=== PATIENT | female | born 1995 | race Caucasian/White ===

== ENCOUNTER 2019-04-20 07:10 | Inpatient (IN) | payer OTHER, BC ==
[2019-04-20] MEDS ORDERED: Sodium Chloride 0.9% 10 ML Syringe FLUSH PRN (07:13)
[2019-04-20] MEDS ORDERED: Ondansetron 4 MG/2 ML SDV IVPUSH PRN (07:13)
[2019-04-20] MEDS ORDERED: Nalbuphine 10 MG/1 ML Vial IVPUSH PRN (07:13)
[2019-04-20] MEDS ORDERED: Oxytocin/Lactated Ringers 10 UNIT/1,000 ML BAG IV SCH ×2 (07:15)
--- NOTE | 2019-04-20 07:16 | PCM.LDHP ---
L&D History of Present Illness - General Date of Service: 04/20/19 Admit Problem/Dx: Patient Status Order with Admit Dx/Problem 04/20/19 07:13 Patient Status [ADT] Routine Admission Diagnosis/Problem Admission Diagnosis/Problem Normal Source of Information: Patient History Limitations: Reports: No Limitations - History of Present Illness Introduction:: Patient is a 24 y/o at 40 0/7 wks who presents for elective IOL. Doing well. No concerns/complaints today. - Related Data Allergies/Adverse Reactions: Allergies Allergy/AdvReac Type Severity Reaction Status Date / Time No Known Allergies Allergy Verified 04/20/19 09:26 Home Medications: Home Meds . 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 (Approximate): Social & Family History - Tobacco Use Smoking Status *Q: Former Smoker - Alcohol Use Alcohol Use History: No - Recreational Drug Use Recreational Drug Use: No Drug Use in Last 12 Months: No H&P Review of Systems - Review of Systems: Review Of Systems: See Below General: Reports: No Symptoms Pulmonary: Reports: No Symptoms Cardiovascular: Reports: No Symptoms Gastrointestinal: Reports: No Symptoms Genitourinary: Reports: No Symptoms Musculoskeletal: Reports: No Symptoms Psychiatric: Reports: No Symptoms Neurological: Reports: No Symptoms L&D Exam - Exam Exam: See Below - OB Specific Contraction Intensity: Irritability Movement: Active Heart Tones: Present Heart Tones per Min: 135 Heart Rate (FHR) Variability: Moderate (6-25 bmp) Presentation: Vertex - Fajardo Score Fajardo Score Cervix Position: Posterior Fajardo Score Consistency: Soft Fajardo Score Effacement: 51-70% Fajardo Score Dilation: 1-2 cm Fajardo Score Infant's Station: -2 Fajardo Score Total: 6 - Exam General: Alert, Oriented, Cooperative Lungs: Clear to Auscultation, Normal Respiratory Effort Cardiovascular: Regular Rate, Regular Rhythm GI/Abdominal Exam: Soft, Non-Tender Genitourinary: Normal external exam Extremities: Normal Inspection Skin: Warm, Dry, Intact - Patient Data Result Diagrams: 04/20/19 07:39 - Problem List (1) 40 weeks gestation of SNOMED Code(s): 39769809 ICD Code: Z3A.40 - 40 WEEKS GESTATION OF Status: Acute Current Visit: Yes (2) Elective induction of labor planned SNOMED Code(s): 461451909 ICD Code: [id number] - Status: Acute Current Visit: Yes (3) Rubella non-immune status, antepartum SNOMED Code(s): 047118390 ICD Code: O99.89 - OTH DISEASES AND CONDITIONS COMPL PREG/CHLDBRTH; Z28.3 - UNDERIMMUNIZATION STATUS Status: Acute Current Visit: Yes Problem List Initiated/Reviewed/Updated: Yes Orders Last 24hrs: Active Orders 24 hr Category Date Time Status Patient Status [ADT] Routine ADT 04/20/19 07:13 Ordered Activity as Tolerated [RC] PFP Care 04/20/19 07:13 Ordered Communication Order [RC] ASDIRECTED Care 04/20/19 07:13 Ordered Communication Order [RC] ASDIRECTED Care 04/20/19 07:13 Ordered Communication Order [RC] ASDIRECTED Care 04/20/19 07:13 Ordered Communication Order [RC] ASDIRECTED Care 04/20/19 07:13 Ordered Heart Tones [RC] ASDIRECTED Care 04/20/19 07:13 Ordered Monitoring [RC] INTERMITTENT Care 04/20/19 07:13 Ordered Non Stress Test [RC] PER UNIT ROUTINE Care 04/20/19 07:13 Ordered Notify Provider [RC] ASDIRECTED Care 04/20/19 07:13 Ordered Notify Provider [RC] PRN Care 04/20/19 07:13 Ordered Peripheral IV Care [RC] . DIRECTED Care 04/20/19 07:13 Ordered Up ad Florencia [RC] ASDIRECTED Care 04/20/19 07:14 Ordered Vaginal Exam [RC] ASDIRECTED Care 04/20/19 07:13 Ordered Vital Signs [RC] ASDIRECTED Care 04/20/19 07:13 Ordered Regular Diet [DIET] Diet 04/20/19 Breakfast Ordered CBC W/O DIFF,HEMOGRAM [HEME] Routine Lab 04/20/19 07:13 Ordered RAPID PLASMA REAGIN,RPR [CHEM] Routine Lab 04/20/19 07:13 Ordered TYPE AND SCREEN [BBK] Routine Lab 04/20/19 07:13 Ordered Lactated Ringers [Ringers, Lactated] 1,000 ml Med 04/20/19 07:15 Ordered IV ASDIRECTED Nalbuphine [Nubain] Med 04/20/19 07:13 Ordered 10 mg IVPUSH Q2H PRN Ondansetron [Zofran] Med 04/20/19 07:13 Ordered 4 mg IVPUSH Q4H PRN Oxytocin/Lactated Ringers [Pitocin in LR 10 Units/1,000 Med 04/20/19 07:15 Ordered ML] 10 unit in 1,000 ml IV .CONTINUOUS Oxytocin/Lactated Ringers [Pitocin in LR 10 Units/1,000 Med 04/20/19 07:15 Ordered ML] 10 unit in 1,000 ml IV TITRATE Sodium Chloride 0.9% [Saline Flush] Med 04/20/19 07:13 Ordered 10 ml FLUSH ASDIRECTED PRN miSOPROStol [Cytotec] Med 04/20/19 07:13 Ordered 25 mcg VAG Q4H PRN Electronic Heart Tones Ext w TOCO [WOMSER] Ot 04/20/19 07:13 Ordered Routine Electronic Heart Tones Internal [WOMSER] Per Unit Ot 04/20/19 07:13 Ordered Routine Peripheral IV Insertion Adult [OM.PC] Routine Oth 04/20/19 07:13 Ordered Resuscitation Status Routine Resus Stat 04/20/19 07:13 Ordered Medication Orders Lactated Ringer's (Ringers, Lactated) 1,000 mls @ 40 mls/hr IV ASDIRECTED RODNEY Oxytocin/Lactated Ringer's (Pitocin In Lr 10 Units/1,000 Ml) 10 unit in 1,000 mls @ 12 mls/hr IV TITRATE RODNEY; Protocol Oxytocin/Lactated Ringer's (Pitocin In Lr 10 Units/1,000 Ml) 10 unit in 1,000 mls @ 500 mls/hr IV .CONTINUOUS RODNEY Misoprostol (Cytotec) 25 mcg VAG Q4H PRN PRN Reason: cervical ripening Nalbuphine HCl (Nubain) 10 mg IVPUSH Q2H PRN PRN Reason: Pain Ondansetron HCl (Zofran) 4 mg IVPUSH Q4H PRN PRN Reason: Nausea/Vomiting Sodium Chloride (Saline Flush) 10 ml FLUSH ASDIRECTED PRN PRN Reason: Keep Vein Open Assessment/Plan Comment:: 24 y/o presents for elective IOL * Labs * GBS negative, no need for antibiotics * Richards bulb and cytotec. Will transition to AROM/pitocin when able * Pain management per patient preference * Anticipate
[2019-04-20] MEDS ORDERED: Misoprostol 25 MCG (1/4 of 100 MCG) Tab ONE (07:22)
[2019-04-20] MEDS: Misoprostol 25 MCG (1/4 of 100 MCG) Tab VAG PRN ×2 (11:56→15:41)
--- NOTE | 2019-04-20 12:23 | PCM.PNLD ---
Labor Progress Note - VS & Meds Vital Signs: Last Vital Signs Temp 36.9 C 04/20/19 08:56 Pulse 86 04/20/19 08:56 Resp 16 04/20/19 08:56 BP 126/97 H 04/20/19 08:56 Pulse Ox Active Medications: Current Medications Lactated Ringer's (Ringers, Lactated) 1,000 mls @ 40 mls/hr IV ASDIRECTED RODNEY Oxytocin/Lactated Ringer's (Pitocin In Lr 10 Units/1,000 Ml) 10 unit in 1,000 mls @ 12 mls/hr IV TITRATE RODNEY; Protocol Oxytocin/Lactated Ringer's (Pitocin In Lr 10 Units/1,000 Ml) 10 unit in 1,000 mls @ 500 mls/hr IV .CONTINUOUS RODNEY Misoprostol (Cytotec) 25 mcg VAG Q4H PRN PRN Reason: cervical ripening Last Admin: 04/20/19 11:56 Dose: 25 mcg Nalbuphine HCl (Nubain) 10 mg IVPUSH Q2H PRN PRN Reason: Pain Ondansetron HCl (Zofran) 4 mg IVPUSH Q4H PRN PRN Reason: Nausea/Vomiting Sodium Chloride (Saline Flush) 10 ml FLUSH ASDIRECTED PRN PRN Reason: Keep Vein Open Discontinued Medications Misoprostol (Cytotec) Confirm Administered Dose 25 mcg .ROUTE .STK-MED ONE Stop: 04/20/19 07:23 Last Admin: 04/20/19 07:34 Dose: 25 mcg - Uterine Contractions Uterine Monitoring Mode: External [place] Contraction Intensity: Irritability Uterine Resting Tone: Soft - Monitoring Monitor Mode: External Ultrasound Heart Rate (FHR) Baseline: 135 Heart Rate (FHR) Variability: Moderate (6-25 bmp) Accelerations: Present, 15x15 Decelerations: None Strip Review: Category I - Labor Progress (Free Text) Labor Progress: Richards bulb out. 2nd cytotec placed at 1145. Will reassess in 4 hours and see if additional Cytotec vs initiation of pitocin needed.
--- NOTE | 2019-04-20 15:29 | PCM.PREANE ---
Preanesthetic Assessment - Procedure Proposed Procedure: tha - Anesthesia/Transfusion/Family Hx Anesthesia History: Prior Anesthesia Without Reaction Family History of Anesthesia Reaction: No Transfusion History: No Prior Transfusion(s) - Review of Systems General: No Symptoms Pulmonary: No Symptoms Cardiovascular: No Symptoms Gastrointestinal: No Symptoms Neurological: No Symptoms Other: Reports: None - Physical Assessment Vital Signs: Last Vital Signs Temp 98.5 F 04/20/19 08:56 Pulse 86 04/20/19 08:56 Resp 16 04/20/19 08:56 BP 126/97 H 04/20/19 08:56 Pulse Ox Height: 5 ft 10 in Weight: 127.715 kg ASA Class: 2 Mental Status: Alert & Oriented x3 Airway Class: Mallampati = 1 Dentition: Reports: Normal Dentition Thyro-Mental Finger Breadths: 3 Mouth Opening Finger Breadths: 3 ROM/Head Extension: Full Lungs: Clear to Auscultation, Normal Respiratory Effort Cardiovascular: Regular Rate, Regular Rhythm - Lab Values: Laboratory Last Values WBC 13.20 K/mm3 (3.98-10.04) H 04/20/19 07:39 RBC 4.54 M/mm3 (3.98-5.22) 04/20/19 07:39 Hgb 13.6 gm/L (11.2-15.7) 04/20/19 07:39 Hct 40.7 % (34.1-44.9) 04/20/19 07:39 MCV 89.6 fl (79.4-94.8) 04/20/19 07:39 MCH 30.0 pg (25.6-32.2) 04/20/19 07:39 MCHC 33.4 g/dl (32.2-35.5) 04/20/19 07:39 RDW Std Deviation 44.5 fL (36.4-46.3) 04/20/19 07:39 Plt Count 231 K/mm3 (182-369) 04/20/19 07:39 MPV 12.8 fl (9.4-12.3) H 04/20/19 07:39 Blood Type A POSITIVE 04/20/19 07:39 Gel Antibody Screen Negative 04/20/19 07:39 - Allergies Allergies/Adverse Reactions: Allergies Allergy/AdvReac Type Severity Reaction Status Date / Time No Known Allergies Allergy Verified 04/20/19 09:26 - Blood Blood Available: No - Acknowledgements Anesthesia Type Planned: Epidural Pt an Appropriate Candidate for the Planned Anesthesia: Yes Alternatives and Risks of Anesthesia Discussed w Pt/Guardian: Yes Pt/Guardian Understands and Agrees with Anesthesia Plan: Yes PreAnesthesia Questionnaire Cardiovascular History: Reports: None Respiratory History: Reports: None Gastrointestinal History: Reports: GERD (with preg) 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 [No Known Home Meds] 04/20/19 [History] - CURRENT (IN HOUSE) MEDS Current Meds: Current Medications Lactated Ringer's (Ringers, Lactated) 1,000 mls @ 40 mls/hr IV ASDIRECTED RODNEY Oxytocin/Lactated Ringer's (Pitocin In Lr 10 Units/1,000 Ml) 10 unit in 1,000 mls @ 12 mls/hr IV TITRATE RODNEY; Protocol Oxytocin/Lactated Ringer's (Pitocin In Lr 10 Units/1,000 Ml) 10 unit in 1,000 mls @ 500 mls/hr IV .CONTINUOUS RODNEY Misoprostol (Cytotec) 25 mcg VAG Q4H PRN PRN Reason: cervical ripening Last Admin: 04/20/19 11:56 Dose: 25 mcg Nalbuphine HCl (Nubain) 10 mg IVPUSH Q2H PRN PRN Reason: Pain Ondansetron HCl (Zofran) 4 mg IVPUSH Q4H PRN PRN Reason: Nausea/Vomiting Sodium Chloride (Saline Flush) 10 ml FLUSH ASDIRECTED PRN PRN Reason: Keep Vein Open Discontinued Medications Misoprostol (Cytotec) Confirm Administered Dose 25 mcg .ROUTE .STK-MED ONE Stop: 04/20/19 07:23 Last Admin: 04/20/19 07:34 Dose: 25 mcg
[2019-04-20] MEDS ORDERED: Bupivacaine/fentaNYL/NS 100 ML Bag EPIDUR PRN (15:30)
[2019-04-20] MEDS ORDERED: diphenhydrAMINE 50 MG/ML SDV IVPUSH PRN (15:30)
[2019-04-20] MEDS ORDERED: ePHEDrine 50 MG/ML SDV IVPUSH PRN (15:30)
[2019-04-20] MEDS: Lactated Ringers 1,000 ML IV SCH ×2 (19:37→22:12)
--- NOTE | 2019-04-20 19:50 | PCM.PNLD ---
Labor Progress Note - VS & Meds Vital Signs: Last Vital Signs Temp 36.9 C 04/20/19 08:56 Pulse 86 04/20/19 08:56 Resp 16 04/20/19 08:56 BP 126/97 H 04/20/19 08:56 Pulse Ox Active Medications: Current Medications Diphenhydramine HCl (Benadryl) 25 mg IVPUSH Q6H PRN PRN Reason: pruritis Ephedrine Sulfate (Ephedrine Sulfate) 5 mg IVPUSH ASDIRECTED PRN PRN Reason: Hypotension Fentanyl (Sublimaze) 100 mcg EPIDUR Q3H PRN PRN Reason: Pain Fentanyl/Bupivacaine HCl (Fentanyl/Bupivacaine/Ns 2 Mcg-0.125% 100 Ml) 100 ml EPIDUR ASDIRECTED PRN PRN Reason: Pain Lactated Ringer's (Ringers, Lactated) 1,000 mls @ 40 mls/hr IV ASDIRECTED RODNEY Last Admin: 04/20/19 19:37 Dose: 40 mls/hr Oxytocin/Lactated Ringer's (Pitocin In Lr 10 Units/1,000 Ml) 10 unit in 1,000 mls @ 12 mls/hr IV TITRATE RODNEY; Protocol Oxytocin/Lactated Ringer's (Pitocin In Lr 10 Units/1,000 Ml) 10 unit in 1,000 mls @ 500 mls/hr IV .CONTINUOUS RODNEY Misoprostol (Cytotec) 25 mcg VAG Q4H PRN PRN Reason: cervical ripening Last Admin: 04/20/19 15:41 Dose: 25 mcg Nalbuphine HCl (Nubain) 10 mg IVPUSH Q2H PRN PRN Reason: Pain Ondansetron HCl (Zofran) 4 mg IVPUSH Q4H PRN PRN Reason: Nausea/Vomiting Sodium Chloride (Saline Flush) 10 ml FLUSH ASDIRECTED PRN PRN Reason: Keep Vein Open Discontinued Medications Misoprostol (Cytotec) Confirm Administered Dose 25 mcg .ROUTE .STK-MED ONE Stop: 04/20/19 07:23 Last Admin: 04/20/19 07:34 Dose: 25 mcg - Uterine Contractions Uterine Monitoring Mode: External [place] Contraction Intensity: Moderate Uterine Resting Tone: Soft - Monitoring Monitor Mode: External Ultrasound Heart Rate (FHR) Baseline: 135 Heart Rate (FHR) Variability: Moderate (6-25 bmp) Accelerations: Present, 15x15 Decelerations: None Strip Review: Category I - Labor Progress (Free Text) Labor Progress: Patient doing well. SROM at 1745. Now feeling very uncomfortable. Plans for epidural. After epidural will start pitocin if needed. She agrees.
[2019-04-20] MEDS: fentaNYL 100 MCG/2 ML SDV EPIDUR PRN (21:47)
[2019-04-21] MEDS ORDERED: Bupivacaine 0.25% 10 ML SDV ONE ×2
[2019-04-21] MEDS ORDERED: Lidocaine 1.5% with EPINEPHrine 1:200,000 5 ML Amp ONE
[2019-04-21] MEDS: fentaNYL 100 MCG/2 ML SDV EPIDUR PRN (00:45)
--- NOTE | 2019-04-21 08:16 | PCM.DEL ---
L & D Note - General Info Date of Service: 04/21/19 - Delivery Note Labor: Induced by Oxytocin Cervical Ripening Method: Balloon Device, Misoprostil Delivery Outcome: Livebirth Delivery Method: Spontaneous Vaginal Delivery-Single Infant Delivery Mode: Vacuum Extraction Presentation: Right Occiput Anterior (ANDREEA) Nuchal Cord: Present (x2), Reduced Anesthesia Type: Epidural Amniotic Fluid Description: Clear Episiotomy Type: None Laceration: 1st Degree, Vaginal Placenta: Intact, Spontaneous Cord: 3 Vessels Estimated Blood Loss: 100 Resuscitation Needed: Yes [place]: Bulb Syringe, Stimulated, Warmed, Willis Used, Warmer Used Delivery Comments (Free Text/Narrative):: Patient found to be complete and began pushing. After about 2 hours of pushing head noted to be on the perineum. FHR at this time with deep, recurrent variables and patient with exhaustion. Given concerns for status decision made to proceed with VAVD. Mushroom cup placed without difficulty. Subsequent vacuum assisted vaginal delivery occurred with pushing over 1 contraction. Total pressure applied 550 mmHg. Suction removed following delivery of head. Nuchal cord present x2 and reduced. With gentle downward traction the shoulders and body delivered. placed on maternal abdomen. Cord clamped and cut. Cord blood obtained. Placenta allowed time to separate and expelled intact. Inspection of the vagina showed a 1st degree laceration which did not extend onto the perineum and was hemostatic and so not repaired. - General Info Date of Service: 04/21/19 - Patient Data Vitals - Most Recent: Last Vital Signs Temp 36.9 C 04/20/19 08:56 Pulse 86 04/20/19 08:56 Resp 16 04/20/19 08:56 BP 126/97 H 04/20/19 08:56 Pulse Ox Weight - Most Recent: 127.715 kg Lab Results Last 24 Hours: Laboratory Results - last 24 hr 04/20/19 04/20/19 04/20/19 Range/Units 07:39 07:39 07:39 WBC 13.20 H (3.98-10.04) K/mm3 RBC 4.54 (3.98-5.22) M/mm3 Hgb 13.6 (11.2-15.7) gm/L Hct 40.7 (34.1-44.9) % MCV 89.6 (79.4-94.8) fl MCH 30.0 (25.6-32.2) pg MCHC 33.4 (32.2-35.5) g/dl RDW Std Deviation 44.5 (36.4-46.3) fL Plt Count 231 (182-369) K/mm3 MPV 12.8 H (9.4-12.3) fl RPR Non-reactive (NONREACTIVE) Blood Type A POSITIVE Gel Antibody Screen Negative Med Orders - Current: Current Medications Diphenhydramine HCl (Benadryl) 25 mg IVPUSH Q6H PRN PRN Reason: pruritis Ephedrine Sulfate (Ephedrine Sulfate) 5 mg IVPUSH ASDIRECTED PRN PRN Reason: Hypotension Fentanyl (Sublimaze) 100 mcg EPIDUR Q3H PRN PRN Reason: Pain Last Admin: 04/21/19 00:45 Dose: 100 mcg Fentanyl/Bupivacaine HCl (Fentanyl/Bupivacaine/Ns 2 Mcg-0.125% 100 Ml) 100 ml EPIDUR ASDIRECTED PRN PRN Reason: Pain Last Admin: 04/20/19 21:47 Dose: 100 ml Lactated Ringer's (Ringers, Lactated) 1,000 mls @ 40 mls/hr IV ASDIRECTED RODNEY Last Admin: 04/20/19 22:12 Dose: 40 mls/hr Oxytocin/Lactated Ringer's (Pitocin In Lr 10 Units/1,000 Ml) 10 unit in 1,000 mls @ 12 mls/hr IV TITRATE RODNEY; Protocol Last Admin: 04/20/19 22:24 Dose: 2 munits/min, 12 mls/hr Oxytocin/Lactated Ringer's (Pitocin In Lr 10 Units/1,000 Ml) 10 unit in 1,000 mls @ 500 mls/hr IV .CONTINUOUS RODNEY Misoprostol (Cytotec) 25 mcg VAG Q4H PRN PRN Reason: cervical ripening Last Admin: 04/20/19 15:41 Dose: 25 mcg Nalbuphine HCl (Nubain) 10 mg IVPUSH Q2H PRN PRN Reason: Pain Last Admin: 04/21/19 04:46 Dose: 10 mg Ondansetron HCl (Zofran) 4 mg IVPUSH Q4H PRN PRN Reason: Nausea/Vomiting Sodium Chloride (Saline Flush) 10 ml FLUSH ASDIRECTED PRN PRN Reason: Keep Vein Open Discontinued Medications Misoprostol (Cytotec) Confirm Administered Dose 25 mcg .ROUTE .STK-MED ONE Stop: 04/20/19 07:23 Last Admin: 04/20/19 07:34 Dose: 25 mcg - Problem List & Annotations (1) 40 weeks gestation of SNOMED Code(s): 38280095 Code(s): Z3A.40 - 40 WEEKS GESTATION OF Status: Acute Current Visit: Yes (2) Elective induction of labor planned SNOMED Code(s): 035737092 Code(s): QCT8750 - Status: Acute Current Visit: Yes (3) Rubella non-immune status, antepartum SNOMED Code(s): 638327549 Code(s): O99.89 - OTH DISEASES AND CONDITIONS COMPL PREG/CHLDBRTH; Z28.3 - UNDERIMMUNIZATION STATUS Status: Acute Current Visit: Yes (4) Vacuum-assisted vaginal delivery SNOMED Code(s): 51636649581730162 Code(s): Z37.9 - OUTCOME OF DELIVERY, UNSPECIFIED Status: Acute Current Visit: Yes - Problem List Review Problem List Initiated/Reviewed/Updated: Yes - My Orders Last 24 Hours: My Active Orders 04/21/19 08:14 Patient Status Manage Transfer [TRANSFER] Routine - Assessment Assessment:: 24 y/o G1 now P1 PPD#0 from VAVD at 40 1/7 wks - Plan Plan:: * Routine cares * Encourage breast feeding * MMR prior to discharge * Discharge home in 1-2 days
[2019-04-21] MEDS ORDERED: Docusate Sodium 100 MG Cap PO PRN (09:12)
[2019-04-21] MEDS ORDERED: Lanolin 100% Cream 7 GM Tube TOP PRN (09:12)
[2019-04-21] MEDS ORDERED: Witch Hazel Medicated Pads 40/Jar TOP PRN (09:12)
[2019-04-21] MEDS ORDERED: Benzocaine/Menthol 20%-0.5% Spray 56 GM Canister TOP PRN (09:12)
[2019-04-21] MEDS ORDERED: Acetaminophen 325 MG Tab PO PRN (09:12)
[2019-04-21] MEDS: Ibuprofen 600 MG Tab PO PRN ×2 (10:46→19:36)
--- NOTE | 2019-04-22 07:55 | PCM.PNPP ---
- General Info Date of Service: 04/22/19 Functional Status: Reports: Pain Controlled, Tolerating Diet, Ambulating, Urinating - Review of Systems General: Reports: No Symptoms Pulmonary: Reports: No Symptoms Cardiovascular: Reports: No Symptoms Gastrointestinal: Reports: No Symptoms Genitourinary: Reports: No Symptoms Musculoskeletal: Reports: No Symptoms Neurological: Reports: No Symptoms - Patient Data Vital Signs - Most Recent: Last Vital Signs Temp 36.4 C 04/22/19 04:41 Pulse 84 04/22/19 04:41 Resp 16 04/22/19 04:41 BP 139/60 04/22/19 04:41 Pulse Ox 99 04/22/19 04:41 Weight - Most Recent: 127.715 kg Med Orders - Current: Current Medications Acetaminophen (Tylenol) 650 mg PO Q4H PRN PRN Reason: mild pain or fever Benzocaine/Menthol (Dermoplast Pain Relief Jay) 0 gm TOP ASDIRECTED PRN PRN Reason: Perineal Comfort Measure Last Admin: 04/21/19 10:46 Dose: 1 can Docusate Sodium (Colace) 100 mg PO BID PRN PRN Reason: Constipation Emollient Ointment (Lansinoh Hpa) 0 gm TOP ASDIRECTED PRN PRN Reason: Sore Nipples Ibuprofen (Motrin) 600 mg PO Q6H PRN PRN Reason: Mild pain or fever Last Admin: 04/21/19 19:36 Dose: 600 mg Measles/Mumps/Rubella Vaccine Live (M-M-R Ii Vaccine) 0.5 ml SUBCUT .ONCE ONE Stop: 04/22/19 08:01 Witch Leandra (Tucks) 1 pad TOP ASDIRECTED PRN PRN Reason: Perineal Comfort Measure Last Admin: 04/21/19 10:47 Dose: 1 tub Discontinued Medications Diphenhydramine HCl (Benadryl) 25 mg IVPUSH Q6H PRN PRN Reason: pruritis Ephedrine Sulfate (Ephedrine Sulfate) 5 mg IVPUSH ASDIRECTED PRN PRN Reason: Hypotension Fentanyl (Sublimaze) 100 mcg EPIDUR Q3H PRN PRN Reason: Pain Last Admin: 04/21/19 00:45 Dose: 100 mcg Fentanyl/Bupivacaine HCl (Fentanyl/Bupivacaine/Ns 2 Mcg-0.125% 100 Ml) 100 ml EPIDUR ASDIRECTED PRN PRN Reason: Pain Last Admin: 04/20/19 21:47 Dose: 100 ml Lactated Ringer's (Ringers, Lactated) 1,000 mls @ 40 mls/hr IV ASDIRECTED RODNEY Last Admin: 04/20/19 22:12 Dose: 40 mls/hr Oxytocin/Lactated Ringer's (Pitocin In Lr 10 Units/1,000 Ml) 10 unit in 1,000 mls @ 12 mls/hr IV TITRATE RODNEY; Protocol Last Titration: 04/21/19 08:04 Dose: 500 mls/hr Oxytocin/Lactated Ringer's (Pitocin In Lr 10 Units/1,000 Ml) 10 unit in 1,000 mls @ 500 mls/hr IV .CONTINUOUS RODNEY Misoprostol (Cytotec) 25 mcg VAG Q4H PRN PRN Reason: cervical ripening Last Admin: 04/20/19 15:41 Dose: 25 mcg Misoprostol (Cytotec) Confirm Administered Dose 25 mcg .ROUTE .[facility]-MED ONE Stop: 04/20/19 07:23 Last Admin: 04/20/19 07:34 Dose: 25 mcg Nalbuphine HCl (Nubain) 10 mg IVPUSH Q2H PRN PRN Reason: Pain Last Admin: 04/21/19 04:46 Dose: 10 mg Ondansetron HCl (Zofran) 4 mg IVPUSH Q4H PRN PRN Reason: Nausea/Vomiting Sodium Chloride (Saline Flush) 10 ml FLUSH ASDIRECTED PRN PRN Reason: Keep Vein Open - Infant Interaction Infant Disposition, : in Room with Family Interaction: Holding Feeding: Attempted ; Nursed Fair/Poor, Bottle Fed Infant Support Person: Mother, Significant Other - Recovery Exam Fundal Tone: Firm Fundal Level: At Umbilicus Fundal Placement: Midline Lochia Amount: Small Lochia Color: Rubra/Red Perineum Description: Intact, Minimal Bruising/Swelling Episiotomy/Laceration: Approximated Bladder Status: Voiding Urinary Elimination: Voided - Exam General: Alert, Oriented, Cooperative GI/Abdominal Exam: Soft, Non-Tender Extremities: Normal Inspection Skin: Warm, Dry, Intact - Problem List & Annotations (1) 40 weeks gestation of SNOMED Code(s): 86241662 Code(s): Z3A.40 - 40 WEEKS GESTATION OF Status: Acute Current Visit: Yes (2) Elective induction of labor planned SNOMED Code(s): 480243529 Code(s): IAQ7676 - Status: Acute Current Visit: Yes (3) Rubella non-immune status, antepartum SNOMED Code(s): 187056723 Code(s): O99.89 - OTH DISEASES AND CONDITIONS COMPL PREG/CHLDBRTH; Z28.3 - UNDERIMMUNIZATION STATUS Status: Acute Current Visit: Yes (4) Vacuum-assisted vaginal delivery SNOMED Code(s): 01414206707124058 Code(s): Z37.9 - OUTCOME OF DELIVERY, UNSPECIFIED Status: Acute Current Visit: Yes - Problem List Review Problem List Initiated/Reviewed/Updated: Yes - My Orders Last 24 Hours: My Active Orders 04/21/19 09:12 Activity as Tolerated [RC] PER UNIT ROUTINE Vital Signs [RC] 09,15,21,03 Acetaminophen [Tylenol] 650 mg PO Q4H PRN Benzocaine/Menthol [Dermoplast Pain Relief Jay] See Dose Instructions TOP ASDIRECTED PRN Docusate Sodium [Colace] 100 mg PO BID PRN Ibuprofen [Motrin] 600 mg PO Q6H PRN Lanolin [Lansinoh HPA] See Dose Instructions TOP ASDIRECTED PRN Witch Leandra [Tucks] 1 pad TOP ASDIRECTED PRN Assess Lochia [WOMSER] Per Unit Routine Assess Uterine Involution [WOMSER] Per Unit Routine Breast Pump [WOMSER] Per Unit Routine Heat Therapy [OM.PC] PRN Ice Therapy [OM.PC] Per Unit Routine Perineal Care [OM.PC] Per Unit Routine Peripheral IV Discontinue [OM.PC] Routine Sitz Bath [OM.PC] Per Unit Routine 04/21/19 12:49 Vaccines to be Administered [RC] PER UNIT ROUTINE 04/21/19 Breakfast Regular Diet [DIET] 04/22/19 08:00 Measles, Mumps & Rubella [M-M-R II Vaccine] 0.5 ml SUBCUT .ONCE ONE 04/22/19 09:12 Heat Therapy [OM.PC] PRN - Assessment Assessment:: 24 y/o G1 now P1 PPD#1 from VAVD at 40 1/7 wks - Plan Plan:: * Routine cares * Encourage breast feeding * MMR prior to discharge * Discharge home today vs tomorrow pending Pediatric team evaluation
[2019-04-22] MEDS ORDERED: Measles, Mumps & Rubella Vaccine 0.5 ML SDV SUBCUT ONE (08:00)
--- NOTE | 2019-04-22 08:02 | PCM48HPAN ---
Post Anesthesia Note - EVALUATION WITHIN 48HRS OF ANESTHETIC Vital Signs in Normal Range: Yes Patient Participated in Evaluation: Yes Respiratory Function Stable: Yes Airway Patent: Yes Cardiovascular Function Stable: Yes Hydration Status Stable: Yes Pain Control Satisfactory: Yes Nausea and Vomiting Control Satisfactory: Yes Mental Status Recovered: Yes Vital Signs: Last Vital Signs Temp 36.4 C 04/22/19 04:41 Pulse 84 04/22/19 04:41 Resp 16 04/22/19 04:41 BP 139/60 04/22/19 04:41 Pulse Ox 99 04/22/19 04:41
[2019-04-22] MEDS: Ibuprofen 600 MG Tab PO PRN ×2 (11:04→19:52)
--- NOTE | 2019-04-23 09:27 | PCM.SN ---
- Free Text/Narrative Note: Post Progress Note PPD # 2 Subjective: Doing well overall. Ambulating without difficulty. Lochia minimal. Voiding without difficulty. Tolerating regular diet without nausea or vomiting. Pain minimal and controlled with oral medications. Breast-feeding with bottle supplementation with some difficulty for breast-feeding. Objective: Vitals: Vital Signs - 24 hr 04/22/19 04/22/19 04/22/19 15:43 19:57 19:58 Temperature 37.0 C Temperature [ Temporal] Pulse, 71 72 75 Peripheral Respiratory 14 Rate Blood Pressure 126/62 135/88 O2 Sat by Pulse 94 L 98 98 Oximetry 04/22/19 04/23/19 04/23/19 20:06 03:33 08:12 Temperature 36.9 C Temperature [ 37.0 C Temporal] Pulse, 69 70 Peripheral Respiratory 16 Rate Blood Pressure 126/81 139/71 O2 Sat by Pulse 97 98 Oximetry Physical Exam General: Alert and oriented, no acute distress Lungs: Clear to auscultation bilaterally Heart: Regular rate and rhythm Abdomen: Soft, obese, minimal appropriate tenderness, non-distended, fundus midline, nontender, and at the umbilicus Extremities: Trace edema in bilateral lower extremities to mid shins ASSESSMENT: 24-year-old female P1 P1001 s/p vacuum assisted vaginal delivery PPD #2, complicated by rubella nonimmune PLAN: Doing well Breast-feeding with bottle supplementation with some difficulty for breast- feeding. Assist as needed Lochia minimal. Continue to monitor for appropriate lochia. Continue routine care MMR vaccine given last evening Discharge home today Reinaldo Sy MD 9:25 AM 04/23/2019
--- NOTE | 2019-04-23 09:58 | PCM.DCSUM1 ---
Discharge Summary - Hospital Course Free Text/Narrative:: - Delivery Note Labor: Induced by Oxytocin Cervical Ripening Method: Balloon Device, Misoprostil Delivery Outcome: Livebirth Delivery Method: Spontaneous Vaginal Delivery-Single Delivery Mode: Vacuum Extraction Presentation: Right Occiput Anterior (ANDREEA) Nuchal Cord: Present (x2), Reduced Anesthesia Type: Epidural Amniotic Fluid Description: Clear Episiotomy Type: None Laceration: 1st Degree, Vaginal Placenta: Intact, Spontaneous Cord: 3 Vessels Estimated Blood Loss: 100 Resuscitation Needed: Yes [place]: Bulb Syringe, Stimulated, Warmed, [place] Used, Warmer Used Delivery Comments (Free Text/Narrative):: Patient found to be complete and began pushing. After about 2 hours of pushing head noted to be on the perineum. FHR at this time with deep, recurrent variables and patient with exhaustion. Given concerns for status decision made to proceed with VAVD. Mushroom cup placed without difficulty. Subsequent vacuum assisted vaginal delivery occurred with pushing over 1 contraction. Total pressure applied 550 mmHg. Suction removed following delivery of head. Nuchal cord present x2 and reduced. With gentle downward traction the shoulders and body delivered. placed on maternal abdomen. Cord clamped and cut. Cord blood obtained. Placenta allowed time to separate and expelled intact. Inspection of the vagina showed a 1st degree laceration which did not extend onto the perineum and was hemostatic and so not repaired. HPI Initial Comments: - Delivery Note Labor: Induced by Oxytocin Cervical Ripening Method: Balloon Device, Misoprostil Delivery Outcome: Livebirth Delivery Method: Spontaneous Vaginal Delivery-Single Infant Delivery Mode: Vacuum Extraction Presentation: Right Occiput Anterior (ANDREEA) Nuchal Cord: Present (x2), Reduced Anesthesia Type: Epidural Amniotic Fluid Description: Clear Episiotomy Type: None Laceration: 1st Degree, Vaginal Placenta: Intact, Spontaneous Cord: 3 Vessels Estimated Blood Loss: 100 Resuscitation Needed: Yes : Bulb Syringe, Stimulated, Warmed, [place] Used, Warmer Used Delivery Comments (Free Text/Narrative):: Patient found to be complete and began pushing. After about 2 hours of pushing head noted to be on the perineum. FHR at this time with deep, recurrent variables and patient with exhaustion. Given concerns for status decision made to proceed with VAVD. Mushroom cup placed without difficulty. Subsequent vacuum assisted vaginal delivery occurred with pushing over 1 contraction. Total pressure applied 550 mmHg. Suction removed following delivery of head. Nuchal cord present x2 and reduced. With gentle downward traction the shoulders and body delivered. Infant placed on maternal abdomen. Cord clamped and cut. Cord blood obtained. Placenta allowed time to separate and expelled intact. Inspection of the vagina showed a 1st degree laceration which did not extend onto the perineum and was hemostatic and so not repaired. Brief History: - Delivery Note. Labor: Induced by Oxytocin. Cervical Ripening Method: Balloon Device, Misoprostil. Delivery Outcome: Livebirth. Infant Delivery Method: Spontaneous Vaginal Delivery-Single. Delivery Mode: Vacuum Extraction. Presentation: Right Occiput Anterior (ANDREEA). Nuchal Cord: Present (x2), Reduced. Anesthesia Type: Epidural. Amniotic Fluid Description: Clear. Episiotomy Type: None. Laceration: 1st Degree, Vaginal. Placenta: Intact, Spontaneous. Cord: 3 Vessels. Estimated Blood Loss: 100. Resuscitation Needed: Yes. [place]: Bulb Syringe, Stimulated, Warmed, [place] Used, Warmer Used. Delivery Comments (Free Text/Narrative):: Patient found to be complete and began pushing. After about 2 hours of pushing head noted to be on the perineum. FHR at this time with deep, recurrent variables and patient with exhaustion. Given concerns for status decision made to proceed with VAVD. Mushroom cup placed without difficulty. Subsequent vacuum assisted vaginal delivery occurred with pushing over 1 contraction. Total pressure applied 550 mmHg. Suction removed following delivery of head. Nuchal cord present x2 and reduced. With gentle downward traction the shoulders and body delivered. placed on maternal abdomen. Cord clamped and cut. Cord blood obtained. Placenta allowed time to separate and expelled intact. Inspection of the vagina showed a 1st degree laceration which did not extend onto the perineum and was hemostatic and so not repaired. Diagnosis: Stroke: No - Discharge Data Discharge Date: 04/23/19 Discharge Disposition: Home, Self-Care 01 Condition: Good - Discharge Diagnosis/Problem(s) (1) 40 weeks gestation of SNOMED Code(s): 18708400 ICD Code: Z3A.40 - 40 WEEKS GESTATION OF Status: Acute Current Visit: Yes (2) Rubella non-immune status, antepartum SNOMED Code(s): 542886596 ICD Code: O99.89 - OTH DISEASES AND CONDITIONS COMPL PREG/CHLDBRTH; Z28.3 - UNDERIMMUNIZATION STATUS Status: Acute Current Visit: Yes (3) Vacuum-assisted vaginal delivery SNOMED Code(s): 86762702724196014 ICD Code: Z37.9 - OUTCOME OF DELIVERY, UNSPECIFIED Status: Acute Current Visit: Yes - Patient Summary/Data Operative Procedure(s) Performed: Vacuum assisted vaginal delivery Complications: None Hospital Course: Nehal Lo was admitted for elective induction of labor. On admission her cervix was dilated to 1-2 cm. She was GBS negative. Was given Cytotec for induction and had a transcervical Richards bulb placed for mechanical dilation of the cervix. She had spontaneous rupture of membranes with clear fluid. She was given an epidural for anesthesia. She progressed to complete and began pushing. On 04/21/2019 she had a vacuum-assisted vaginal delivery of a live male infant at 0800. Apgars of 7 and 9. Weight of 3360 g (7 pounds 6.5 ounces) . Her course was uneventful. Her pain was well controlled and she had minimal lochia. She was ambulating, tolerating a regular diet and voiding normally. She was breast-feeding with bottle supplementation with some difficulty for breast-feeding. She was afebrile and her hematocrit was 40.7 on admission. She desired to be discharged home on the morning of PPD #2. Her blood type is A+. She was rubella nonimmune and was given MMR vaccine prior to discharge. - Patient Instructions Diet: Regular Diet as Tolerated Activity: As Tolerated Activity, Other: Pelvic rest for 6 weeks Driving: May Drive Today Showering/Bathing: May Shower Showering/Bathing, Other: May bathe Notify Provider of: Fever, Increased Pain, Swelling and Redness, Drainage, Nausea and/or Vomiting - Discharge Plan *PRESCRIPTION DRUG MONITORING PROGRAM REVIEWED*: No *COPY OF PRESCRIPTION DRUG MONITORING REPORT IN PATIENT [place]: No Home Medications: Home Meds Docusate Sodium [Colace] 100 mg PO BID PRN cap 04/22/19 [Rx] Ibuprofen [Motrin] 600 mg PO Q6H PRN tablet 04/22/19 [Rx] Patient Handouts: Home Care Instructions for Mom, Tips for a Good Latch, Care After Vaginal Delivery Referrals: Dena Alexander MD [Primary Care Provider] - (2 weeks for check ) - Discharge Summary/Plan Comment DC Time >30 min.: No - Patient Data Vitals - Most Recent: Last Vital Signs Temp 36.9 C 04/23/19 08:12 Pulse 70 04/23/19 08:12 Resp 16 04/23/19 08:12 BP 139/71 04/23/19 08:12 Pulse Ox 98 04/23/19 08:12 Weight - Most Recent: 127.715 kg Med Orders - Current: Current Medications Acetaminophen (Tylenol) 650 mg PO Q4H PRN PRN Reason: mild pain or fever Benzocaine/Menthol (Dermoplast Pain Relief [place]) 0 gm TOP ASDIRECTED PRN PRN Reason: Perineal Comfort Measure Last Admin: 04/21/19 10:46 Dose: 1 can Docusate Sodium (Colace) 100 mg PO BID PRN PRN Reason: Constipation Emollient Ointment (Lansinoh Hpa) 0 gm TOP ASDIRECTED PRN PRN Reason: Sore Nipples Ibuprofen (Motrin) 600 mg PO Q6H PRN PRN Reason: Mild pain or fever Last Admin: 04/22/19 19:52 Dose: 600 mg Witch Leandra (Tucks) 1 pad TOP ASDIRECTED PRN PRN Reason: Perineal Comfort Measure Last Admin: 04/21/19 10:47 Dose: 1 tub Discontinued Medications Bupivacaine HCl (Sensorcaine-Mpf 0.25%) 10 ml .ROUTE .STK-MED ONE Stop: 04/21/19 00:01 Bupivacaine HCl (Sensorcaine-Mpf 0.25%) 10 ml .ROUTE .STK-MED ONE Stop: 04/21/19 00:01 Diphenhydramine HCl (Benadryl) 25 mg IVPUSH Q6H PRN PRN Reason: pruritis Ephedrine Sulfate (Ephedrine Sulfate) 5 mg IVPUSH ASDIRECTED PRN PRN Reason: Hypotension Fentanyl (Sublimaze) 100 mcg EPIDUR Q3H PRN PRN Reason: Pain Last Admin: 04/21/19 00:45 Dose: 100 mcg Fentanyl/Bupivacaine HCl (Fentanyl/Bupivacaine/Ns 2 Mcg-0.125% 100 Ml) 100 ml EPIDUR ASDIRECTED PRN PRN Reason: Pain Last Admin: 04/20/19 21:47 Dose: 100 ml Lactated Ringer's (Ringers, Lactated) 1,000 mls @ 40 mls/hr IV ASDIRECTED RODNEY Last Admin: 04/20/19 22:12 Dose: 40 mls/hr Oxytocin/Lactated Ringer's (Pitocin In Lr 10 Units/1,000 Ml) 10 unit in 1,000 mls @ 12 mls/hr IV TITRATE RODNEY; Protocol Last Titration: 04/21/19 08:04 Dose: 500 mls/hr Oxytocin/Lactated Ringer's (Pitocin In Lr 10 Units/1,000 Ml) 10 unit in 1,000 mls @ 500 mls/hr IV .CONTINUOUS RODNEY Lidocaine/Epinephrine (Xylocaine-Mpf 1.5% W/Epinephrine 1:200,000) 5 ml .ROUTE .STK-MED ONE Stop: 04/21/19 00:01 Measles/Mumps/Rubella Vaccine Live (M-M-R Ii Vaccine) 0.5 ml SUBCUT .ONCE ONE Stop: 04/22/19 08:01 Last Admin: 04/22/19 19:49 Dose: 0.5 ml Misoprostol (Cytotec) 25 mcg VAG Q4H PRN PRN Reason: cervical ripening Last Admin: 04/20/19 15:41 Dose: 25 mcg Misoprostol (Cytotec) Confirm Administered Dose 25 mcg .ROUTE .STK-MED ONE Stop: 04/20/19 07:23 Last Admin: 04/20/19 07:34 Dose: 25 mcg Nalbuphine HCl (Nubain) 10 mg IVPUSH Q2H PRN PRN Reason: Pain Last Admin: 04/21/19 04:46 Dose: 10 mg Ondansetron HCl (Zofran) 4 mg IVPUSH Q4H PRN PRN Reason: Nausea/Vomiting Sodium Chloride (Saline Flush) 10 ml FLUSH ASDIRECTED PRN PRN Reason: Keep Vein Open
== END 2019-04-23 11:30 | disposition home or self-care (01) | DRG 807 ==
LOC: JD.OB 07:10 → OBSVTOIN 04-21 08:00 → JD.OB 04-21 08:01
PROVIDERS: ADMIT Obstetrics & Gynecology; ATTEND Obstetrics & Gynecology
PROC: 3E0P7VZ Introduction of Hormone into Female Reproductive, Via Natural or Artificial Opening (ICD-10-PCS; principal; 2019-04-21)
PROC: 10D07Z8 Extraction of Products of Conception, Other, Via Natural or Artificial Opening (ICD-10-PCS; 2019-04-21)
PROC: 10907ZC Drainage of Amniotic Fluid, Therapeutic from Products of Conception, Via Natural or Artificial Opening (ICD-10-PCS; 2019-04-21)
PROC: 3E033VJ Introduction of Other Hormone into Peripheral Vein, Percutaneous Approach (ICD-10-PCS; 2019-04-21)
DX: O48.0 Post-term pregnancy (principal); Z37.0 Single live birth; O69.81X0 Labor and delivery complicated by cord around neck, without compression, not applicable or unspecified; O70.0 First degree perineal laceration during delivery; Z3A.40 40 weeks gestation of pregnancy; Z87.891 Personal history of nicotine dependence
CPT/HCPCS: 36415; 51702; 59025; 59409; 85027; 86592; 86850; 86900; 86901; 90471; 90707; A9270-GY; J2300; J2590; J3010; J3490; J7120